=== PATIENT | male | born 1945 | race Hispanic/Latino ===

== ENCOUNTER 2018-08-21 08:18 | Day surgery (SDC) | payer MEDICARE ==
[2018-08-15 16:41] VITALS: BMI 28.7
[2018-08-21 08:58] VITALS: RESP 20
[2018-08-21] MEDS ORDERED: Lidocaine 1% Inj (20ml) ONE (11:19)
[2018-08-21] MEDS ORDERED: Propofol 10 mg/ml Inj (20 ML) ONE (11:20)
[2018-08-21] MEDS ORDERED: cefTRIAXone 1 GM in NS 100 ML BAG IVPB ONE (11:30)
[2018-08-21] MEDS ORDERED: cefTRIAXone (Rocephin) 1 gm Inj ONE (11:31)
[2018-08-21] MEDS ORDERED: Iohexol 240 (50 ml) ONE (11:32)
[2018-08-21] MEDS ORDERED: ePHEDrine 50 mg/ml Inj ONE (11:39)
[2018-08-21] MEDS ORDERED: HYDROmorphone 0.5 mg/0.5 ml ISec IVP PRN (12:27)
[2018-08-21] MEDS ORDERED: Lactated Ringer's 1,000 ML IV SCH (12:30)
[2018-08-21 13:37] VITALS: O2SAT 97
[2018-08-21 13:56] VITALS: TEMP 97.8
[2018-08-21 14:40] VITALS: BP 133/74; PULSE 80
--- NOTE | 2018-08-21 15:50 | OP ---
PROCEDURE DATE: 08/21/2018 PREOPERATIVE DIAGNOSES: Bladder outlet obstruction, benign prostatic hypertrophy. POSTOPERATIVE DIAGNOSES: Bladder outlet obstruction, benign prostatic hypertrophy. PROCEDURE: Cystoscopy, GreenLight laser vaporization of prostate. ATTENDING SURGEON: Rudi Isaac MD ANESTHESIA: General. SPECIMENS: There were none. DRAINS: A 20-[place] three-way Valenzuela catheter. COMPLICATIONS: There were none. OPERATIVE FINDINGS: After informed consent was obtained, the patient was taken to the operating room, placed on operating table. Anesthesia was administered. The patient was placed in dorsal lithotomy position and prepped and draped in the usual sterile fashion. The patient received IV antibiotics prior to start of the procedure. A 21-[place]an laser scope was placed in the patient's urethra and advanced proximally under direct vision, until the bladder was entered. A full survey inspection of bladder was performed which revealed no stones or bladder tumors. Bladder had grade II to III trabeculation with multiple cellules noted. Exam of the prostatic urethra revealed trilobar hypertrophy with occlusion. At this point, a GreenLight laser fiber was obtained. It was passed through the scope and laser vaporization was begun. The prostate was systematically vaporized from the bladder neck proximally, until the level of the verumontanum was reached. The median lobe was vaporized as well as both of the lateral lobes. Any bleeding points encountered during the vaporization were controlled using the laser on cauterization function. After all the obstructing tissue had been adequately removed, the irrigation was turned off, inspection was made for any bleeding points. Any active bleeding again was controlled using the laser. When hemostasis was complete, the procedure was completed. The bladder was inspected, there was no tissue in the bladder. The bladder was emptied and irrigated. The scope was then removed and a 20-[place] three-way Valenzuela catheter was passed and placed to continuous bladder irrigation. The patient tolerated the procedure well. He was returned to the supine position and taken to the recovery room awake, in stable condition. Rudi Isaac MD
== END 2018-08-21 13:10 | disposition home or self-care (01) ==
LOC: SDS 08:18
PROVIDERS: ATTEND Urology
DX: N40.1 Benign prostatic hyperplasia with lower urinary tract symptoms (principal); N13.8 Other obstructive and reflux uropathy; N32.0 Bladder-neck obstruction; I10 Essential (primary) hypertension; J43.9 Emphysema, unspecified; E11.9 Type 2 diabetes mellitus without complications; R06.00 Dyspnea, unspecified
CPT/HCPCS: 52648; J0696; J1170; J2405; J2704; J2765; J3010; J7120; Q9966

== ENCOUNTER 2018-09-20 14:23 | Inpatient (IN) | payer MEDICARE, BC ==
[2018-09-20 14:24] VITALS: BMI 28.7
[2018-09-20] MEDS ORDERED: Sodium Chloride 0.9% 1,000 ML IV STA (14:43)
--- NOTE | 2018-09-20 14:45 | ED PDOC ---
Arrival/HPI - General Time Seen by Provider: 09/20/18 14:26 Historian: Patient - History of Present Illness Narrative History of Present Illness (Text): 09/20/18 14:42 A 73 year old male, whose past medical history includes cystoscopy turp with green light laser (08/21/18), benign prostate hypertrophy, diabetes, colon cancer, hypertension, and hyperlipidemia, presents to the emergency department complaining of urinary retention with hematuria with bood clots since earlier today. Patient reports he went to an urgent care center after waking up having difficulty urinating and then urinating blood clots. Patient's blood pressure in clinic measured to be 74/61. Dr. Singletary, the [facility] ED doctor gave report to [facility] Dr. Alejandro Oliver about the details of the patient's case. Patient was given 3 liters of normal saline and blood pressure then measured to be 120/67. Dr. Isaac was then called who advised the patient to go to [facility] ED. Patient denies any current pain and notes having difficulty/inability to urinate. Per clinic reports, patient was given Rocephin 1 gram. Patient denies any fever, chills, back pain, abdominal pain, or any other complaints. PMD: Dr. Munoz Time/Duration: 4-6 hours (earlier today) Symptom Onset: Gradual Symptom Course: Unchanged Activities at Onset: Light Context: Home Past Medical History - Provider Review Nursing Documentation Reviewed: Yes - Tetanus Immunization Tetanus Immunization: Unknown - Cardiac Hx Pacemaker: No - Pulmonary Hx Emphysema: Yes - Neurological Hx Paralysis: No - Renal Hx Renal Disorder: No - Endocrine/Metabolic Hx Endocrine Disorders: No Hx Diabetes Mellitus Type 2: Yes (borderline) - Hematological/Oncological Hx Blood Transfusions: No - Musculoskeletal/Rheumatological Hx Musculoskeletal Disorders: No - Gastrointestinal Hx Gastrointestinal Disorders: No - Genitourinary/Gynecological Hx Prostate Problems: Yes (ENLARGED PROSTATE) - Psychiatric Hx Emotional Abuse: No Hx Physical Abuse: No Hx Substance Use: No - Surgical History Hx Appendectomy: Yes Hx Orthopedic Surgery: Yes (LEFT SHOULDER/ROTATORCUFF SX IN 1999) - Anesthesia Hx Anesthesia Reactions: No Hx Malignant Hyperthermia: No - Suicidal Assessment Feels Threatened In Home Enviroment: No Family/Social History - Physician Review Nursing Documentation Reviewed: Yes Family/Social History: No Known Family HX Smoking Status: Former Smoker (quit smoking 8 months ago) Hx Alcohol Use: No Hx Substance Use: No Hx Substance Use Treatment: No Allergies/Home Meds Allergies/Adverse Reactions: Allergies No Known Allergies Allergy (Verified 09/20/18 14:50) Home Medications: Home Meds Medication Instructions Recorded Confirmed Tamsulosin [Flomax] 0.4 mg PO DAILY 09/06/11 09/20/18 Atorvastatin [Lipitor] 20 mg PO DAILY 08/15/18 09/20/18 Glimepiride [amaRYL] 2 mg PO BID 08/15/18 09/20/18 Insulin Degludec [Tresiba] 25 unit SQ ACBHS 08/15/18 09/20/18 Losartan [Cozaar] 25 mg PO DAILY 08/15/18 09/20/18 Sitagliptin Phos/Metformin HCl 1 tab PO BID 08/15/18 09/20/18 [Janumet 50-1,000 mg Tablet] Review of Systems - Physician Review All systems were reviewed & negative as marked: Yes - Review of Systems Constitutional: absent: Fevers, Other (chills) Gastrointestinal: absent: Abdominal Pain Genitourinary Male: Hematuria (hematuria and blood clots), Other (urinary retention) Musculoskeletal: absent: Back Pain Physical Exam Vital Signs Reviewed: Yes Vital Signs Temp Pulse Resp BP Pulse Ox 09/20/18 14:33 97.8 F 90 16 106/68 97 Temperature: Afebrile Blood Pressure: Normal Pulse: Regular Respiratory Rate: Normal Appearance: Positive for: Well-Appearing, Non-Toxic Pain Distress: None Mental Status: Positive for: Alert and Oriented X 3 - Systems Exam Head: Present: Atraumatic, Normocephalic Pupils: Present: PERRL Extroacular Muscles: Present: EOMI Conjunctiva: Present: Normal Respiratory/Chest: Present: Clear to Auscultation, Good Air Exchange. No: Respiratory Distress, Accessory Muscle Use Cardiovascular: Present: Regular Rate and Rhythm, Normal S1, S2. No: Murmurs Abdomen: Present: Normal Bowel Sounds. No: Tenderness, Distention, Peritoneal Signs Genitourinary Male: Present: Normal External Genitalia, Other (moran cather in place; blood in urine; no tenderness to penis). No: Penile Discharge, Testicle Tenderness, Penile Swelling, Erythema Upper Extremity: Present: Normal Inspection Lower Extremity: Present: Normal Inspection Neurological: Present: GCS=15, CN II-XII Intact, Speech Normal Skin: Present: Warm, Dry, Normal Color. No: Rashes Psychiatric: Present: Alert, Oriented x 3, Normal Insight, Normal Concentration Medical Decision Making ED Course and Treatment: 09/20/18 14:44 Impression: 73 year old male presenting to the emergency room complaining urinary retention, hematuria with blood clots; placed on CBI at [facility] where they also noted large clot in the bladder with ultrasound Plan: -- VBG -- Labs -- CBC -- COAGs -- IV fluids -- Urinalysis -- Reassess and disposition Prior Visits: Notes and results from previous visits were reviewed. Progress Notes: 09/20/18 15:21 Case was discussed with Dr. Isaac who will place for a cystoscopy most likely on Saturday. Labs pending. Corrected Calcium 8.3. Potassium mildly elevated. Will repeat after hydration. 09/20/18 16:[address] Stone who agreed to admit to her service and Dr. Isaac on consult. Patient's blood pressure stable 98/68. Patient's urine in the moran bag appears bloody. Will place on remote tele due to continued bloody urine in history of hypotension on arrival at [facility]. - Scribe Statement The provider has reviewed the documentation as recorded by the Scribgretta Moreland All medical record entries made by the Scribe were at my direction and personally dictated by me. I have reviewed the chart and agree that the record accurately reflects my personal performance of the history, physical exam, medical decision making, and the department course for this patient. I have also personally directed, reviewed, and agree with the discharge instructions and disposition. Disposition/Present on Arrival - Present on Arrival Any Indicators Present on Arrival: Yes History of DVT/PE: No History of Uncontrolled Diabetes: No Urinary Catheter: No History Surgical Site Infection Following: Orthopedic Procedures - Disposition Have Diagnosis and Disposition been Completed?: Yes Diagnosis: Hematuria, Urinary retention Disposition: HOSPITALIZED Disposition Time: 16:10 Patient Plan: Admission Condition: FAIR
[2018-09-20 15:11] LABS: BASO # 0.03 K/mm3 (0.0-2.0); BASO % 0.3 % (0.0-3.0); EOS % 0.3 % (1.5-5.0); HEMOGLOBIN 10.4 g/dL (14.0-18.0); LYMPH # 1.4 (1.2-3.4); LYMPH % 12.2 % (22.0-35.0); MEAN CORPUSCULAR HEMOGLOBIN 28.4 pg (25.0-35.0); MEAN CORPUSCULAR HGB CONC 32.3 g/dl (31.0-37.0); MEAN PLATELET VOLUME 8.7 fl (7.0-11.0); MONO # 0.5 (0.1-0.6); MONO % 4.6 % (1.0-6.0); RBC 3.66 10^6/uL (3.5-6.1); WHITE BLOOD COUNT 11.6 10^3/uL (4.5-11.0)
[2018-09-20 15:16] LABS: INR 1.2; PARTIAL THROMBOPLASTIN TIME 27.6 Seconds (26.9-38.3); PROTHROMBIN TIME 13.3 SECONDS (9.4-12.5)
[2018-09-20 15:19] LABS: ALB/GLOB RATIO 1.3 (1.1-1.8); ALBUMIN 3.5 g/dL (3.0-4.8); ALT/SGPT 27 U/L (7-56); AST/SGOT 24 U/L (17-59); BLOOD UREA NITROGEN 15 mg/dL (7-21); CALCIUM 7.9 mg/dL (8.4-10.5); GFR NON-AFRICAN AMERICAN 60
[2018-09-20 16:10] LABS: VENOUS BLOOD GAS BASE EXCESS -5.4 mmol/L (0.0-2.0); VENOUS BLOOD GAS PO2 27 mm/Hg (30-55); VENOUS BLOOD PH 7.27 (7.32-7.43)
[2018-09-20 16:41] LABS: PH,URINE 7.5 (4.7-8.0); URINE BILIRUBIN NEGATIVE (NEGATIVE); URINE BLOOD LARGE (NEGATIVE); URINE GLUCOSE (UA) 100 mg/dL (NEGATIVE); URINE LEUKOCYTE ESTERASE MODERATE Leu/uL (NEGATIVE); URINE PROTEIN NEGATIVE mg/dL (<30 mg/dL); URINE UROBILINOGEN 0.2 E.U./dL (<1 E.U./dL)
[2018-09-20 16:43] LABS: URINE APPEARANCE TURBID (CLEAR); URINE COLOR RED (YELLOW)
[2018-09-20 16:46] LABS: URINE BACTERIA MANY /hpf; URINE RBC TNTC /hpf (0-2); URINE WBC TNTC /hpf (0-6)
[2018-09-20] MEDS ORDERED: Pneumococcal 23-Valent Vaccine IM ONE (17:26)
[2018-09-20] MEDS ORDERED: Non Formulary Medication (Sitagliptin Phos/Metformin Hcl [Janumet 50-1,000 Mg Tablet] 1 TA PO SCH (18:00)
[2018-09-20] MEDS: cefTRIAXone 1 gm 1 GM/100 ML BAG IVPB SCH (18:50)
[2018-09-20 20:02] LABS: VENOUS BLOOD GAS BASE EXCESS -2.2 mmol/L (0.0-2.0); VENOUS BLOOD GAS PO2 21 mm/Hg (30-55); VENOUS BLOOD PH 7.36 (7.32-7.43)
[2018-09-20] MEDS: Insulin Lispro (humaLOG) MEDIUM Coverage SC SCH (22:06)
[2018-09-20] MEDS ORDERED: Morphine 2 mg/ml ISec IVP STA (23:20)
--- NOTE | 2018-09-21 00:24 | CP.PCM.PCO ---
<Miguelina Chase - Last Filed: 09/21/18 01:19> Addendum Addendum: 09/21/18 01:19 OVERNIGHT RESIDENT NOTE MIGUELINA CHASE PGY1 Nursing staff paged about patient complaining of severe abdominal pain. I went to evaluate the patient. Urine was not draining into moran bag. I removed original CBI catheter and patient passed large clot once catheter was removed. I replaced with another 22F catheter. Bloody urine initially was draining, however stopped draining and abdominal pain and distention was noted. I removed catheter. Patient was able to pass urine once catheter was removed into urinal. Pain/distention also significantly improved. Patient was able to urinate without difficulty once catheter was removed. I will reassess throughout the night. <Cathi Waldrop - Last Filed: 09/21/18 19:05> Attending/Attestation - Attestation I have personally seen and examined this patient.: No I have fully participated in the care of the patient.: No I have reviewed all pertinent clinical information: No
--- NOTE | 2018-09-21 03:08 | HP ---
DATE OF EXAM: 09/20/2018 HISTORY OF PRESENT ILLNESS: The patient is 73 years old, came to emergency room with suprapubic discomfort and pain and having blood in the urine since morning. The patient had cystoscopy and GreenLight Laser procedure done by Dr. Isaac on 08/21/2018. He was okay up until last night, until he started to have this suprapubic discomfort this morning. He went to urgent care center. He was found to be hypotensive and blood pressure was 74/61. He was brought to [place] [facility] for further evaluation. The patient complains now feeling weak and dizzy. Denies any nausea. Did have some feeling of chills. PAST MEDICAL HISTORY: Significant for: 1. Noninsulin-dependent diabetes. 2. Cancer colon. 3. Hypertension. 4. Hyperlipidemia. 5. History of COPD. ALLERGIES: NOT ALLERGIC TO ANY MEDICATION. MEDICATION AT HOME: He is on Lipitor 100 mg daily, glimepiride 2 mg twice a day, Cozaar 25 daily, Janumet, Flomax, , Ambien. SOCIAL HISTORY: He used to be a very heavy smoker, quit 5 years ago. Denies alcohol, uses only socially. PHYSICAL EXAMINATION GENERAL: Awake and alert, able to communicate. VITAL SIGNS: Afebrile, pulse of 90, respirations of 16, blood pressure of 106/68. LUNGS: Bilateral fair airflow. No rhonchi or crackle. HEART: S1 and S2 audible. ABDOMEN: Soft, nontender, no rebound, no guarding. NEUROLOGIC: He is awake and alert, able to communicate. EXTREMITIES: Bilateral legs, no edema. He has a three-way catheter placed, draining pinkish urine. LABORATORY EXAM: WBC 11.6, hemoglobin 10.4, hematocrit 32, platelets of 151. PT of 13.3, INR of 1.20. Chemistries; sodium of 139, potassium of 5.1, chloride of 111, CO2 of 21, BUN of 15, creatinine of 1.2, blood sugar of 147. Urine shows positive nitrites and large blood. ASSESSMENT AND PLAN: 1. Status post GreenLight procedure, prostate vaporization. 2. Hematuria and urine retention. 3. Possibly urinary tract infection. 4. Hypertension. 5. Chronic obstructive pulmonary disease. 6. History of cancer colon. 7. Noninsulin-dependent diabetes. PLAN: The patient will be admitted. We will start him on IV antibiotics. Resume his medications, monitor blood sugar. Continue CBI. Dr. Jeter evaluated the patient. Follow CBC and electrolyte in a.m. Fior Stone MD
[2018-09-21 07:36] LABS: BASO # 0.03 K/mm3 (0.0-2.0); BASO % 0.3 % (0.0-3.0); EOS # 0.1 (0.0-0.7); EOS % 0.5 % (1.5-5.0); HEMOGLOBIN 9.8 g/dL (14.0-18.0); LYMPH # 1.3 (1.2-3.4); LYMPH % 12.5 % (22.0-35.0); MEAN CELL VOLUME 87.5 fl (80.0-105.0); MEAN CORPUSCULAR HEMOGLOBIN 28.5 pg (25.0-35.0); MEAN CORPUSCULAR HGB CONC 32.6 g/dl (31.0-37.0); MEAN PLATELET VOLUME 8.7 fl (7.0-11.0); MONO % 9.4 % (1.0-6.0); RBC 3.44 10^6/uL (3.5-6.1); RED CELL DISTRIBUTION WIDTH 15.1 % (11.5-14.5); WHITE BLOOD COUNT 10.5 10^3/uL (4.5-11.0)
[2018-09-21 07:52] LABS: ALB/GLOB RATIO 1.4 (1.1-1.8); ALBUMIN 3.9 g/dL (3.0-4.8); ALT/SGPT 25 U/L (7-56); AST/SGOT 25 U/L (17-59); BLOOD UREA NITROGEN 14 mg/dL (7-21); CALCIUM 8.3 mg/dL (8.4-10.5); GFR NON-AFRICAN AMERICAN > 60
[2018-09-21] MEDS: Insulin Lispro (humaLOG) MEDIUM Coverage SC SCH ×4 (08:19→23:26)
[2018-09-21] MEDS ORDERED: Morphine 2 mg/ml ISec IVP STA ×4 (09:45→16:15)
[2018-09-21] MEDS: cefTRIAXone 1 gm 1 GM/100 ML BAG IVPB SCH (09:55)
--- NOTE | 2018-09-21 14:43 | PN ---
DATE: 09/21/2018 SUBJECTIVE: The patient is 73-year-old, seen and examined, sitting in chair. Urinal in his hand. He stated he is peeing very little. He had Valenzuela placed but got clogged, so it was removed. Awaiting Dr. Isaac's input, who will be visiting the patient soon. PHYSICAL EXAMINATION: GENERAL: He is awake and alert, able to communicate. VITAL SIGNS: He is afebrile, pulse 118, respirations 20, blood pressure 101/62. LUNGS: Bilateral fair airflow. No rhonchi or crackle. HEART: S1 and S2 audible. ABDOMEN: Soft, nontender, no rebound, no guarding. NEUROLOGIC: The patient is awake and alert. Able to communicate. EXTREMITIES: Bilateral legs have no edema. LABORATORY DATA: WBC 10.5, hemoglobin 9.2, hematocrit 30, platelets 171. Chemistry: Sodium 141, potassium 4.3, chloride 110, CO2 of 21. BUN 14, creatinine 1, random blood sugar 143. His urine cultures are pending. ASSESSMENT AND PLAN: 1. Status post prostatectomy almost a month ago, developed hematuria and urine retention. 2. Uyy-pyrooqp-deaonjtcu diabetes. 3. History of carcinoma of colon, status post resection eight years ago. 4. Hypertension. 5. Hyperlipidemia. 6. History of chronic obstructive pulmonary disease. PLAN: We will monitor the patient's blood sugars. He is empirically on IV antibiotics. We will resume all his medications. Awaiting Dr. Isaac's input. Fior Stone MD
--- NOTE | 2018-09-22 08:45 | PN ---
DATE: 09/21/2018 The patient is well-known to me. He had a GreenLight laser vaporization of prostate approximately one month ago. He had been doing well until a few days prior to admission, he began having some gross hematuria. The patient had been seen in [place] [facility]. A Valenzuela catheter was placed. He had imaging done which apparently showed a large clot in his bladder. A Valenzuela catheter was inserted. He was draining blood-tinged urine and the patient eventually was transferred to [facility] for admission. The patient had the Valenzuela catheter in place. They were irrigating it; however, it was not working well. Attempts were made to change it. However, due to patient's discomfort, he was left without a Valenzuela catheter. The patient reports he has been voiding now although with some frequency, urine is grossly bloody. No fever or chills. Today, upon arriving at the bedside, the patient is sitting in a chair. He is comfortable. He reports he is voiding without difficulty, although the urine is bloody. On exam, his bladder feels mildly distended. I told the patient the plan would be to take him back to the operating room to do a cystoscopy with evacuation of the clots given the prior report. However, I felt that I would attempt to place a Valenzuela catheter and irrigate the clots out at bedside. I was able to pass a 20-[place]zech three-way Valenzuela catheter without any difficulty. About 150 mL of old bloody urine were evacuated. I was then able to irrigate the patient's bladder copiously with saline and remove approximately 150 mL of clots. The patient was left on CBI which is now running crystal clear. Plan is to observe him overnight. I will make him n.p.o. after midnight. If he continues to have clots and catheter issues, I will take him to the operating room tomorrow for a cystoscopy and evacuation of clots. If he remains clear overnight, we will hold the CBI and then possibly discharge him tomorrow with a Valenzuela catheter which can be taken out. Rudi Isaac MD
[2018-09-22] MEDS: Insulin Lispro (humaLOG) MEDIUM Coverage SC SCH ×4 (10:56→19:15)
--- NOTE | 2018-09-22 11:16 | CP.PCM.PCO ---
Physician Communication Note - Physician Communication Note Physician Communication Note: pt npo, for cysto with clot removal today per OR desk ,will follow
[2018-09-22] MEDS ORDERED: Propofol 10 mg/ml Inj (20 ML) ONE (11:44)
[2018-09-22] MEDS ORDERED: Etomidate 20 mg/10ml Inj IV ONE (11:45)
[2018-09-22] MEDS ORDERED: Lactated Ringer's 1,000 ML IV SCH (12:30)
--- NOTE | 2018-09-22 14:49 | PN ---
DATE: 09/22/2018 SUBJECTIVE: The patient is 73 years old, seen and examined. Still has urinary discomfort and difficulty voiding. He was seen by Dr. Isaac taken to OR for cystoscopy and clot removal. PHYSICAL EXAMINATION: VITAL SIGNS: He is afebrile. Pulse 89, respiration 20 and blood pressure 125/76. LUNGS: Bilateral fair airflow. No rhonchi or crackle. HEART: S1 and S2, audible. ABDOMEN: Soft, obese and nontender. No rebound. No guarding. NEUROLOGIC: The patient is awake, alert and able to communicate. LABORATORY DATA: Blood sugar is 125. His urine has Corynebacterium species. ASSESSMENT: 1. Status post GreenLight laser vaporization. 2. Plan for cystoscopy and cystoscopic removal of blood clots. 3. Non-insulin dependant diabetes. 4. History of cancer colon. 5. History of hypertension. 6. Chronic obstructive pulmonary disease. PLAN: The patient will be watched overnight. We will order for CBC and CMP in a.m. If the patient continues to improve disposition plan in a.m. Fior Stone MD
[2018-09-22] MEDS: cefTRIAXone 1 gm 1 GM/100 ML BAG IVPB SCH (15:20)
[2018-09-22] MEDS ORDERED: Morphine 2 mg/ml ISec IVP PRN (22:46)
--- NOTE | 2018-09-22 23:51 | OP ---
PROCEDURE DATE: 09/22/2018 PREOPERATIVE DIAGNOSIS: Clot retention. POSTOPERATIVE DIAGNOSIS: Clot retention. PROCEDURES: Cystoscopy, evacuation of clots, fulguration of prostatic bleeding. ATTENDING SURGEON: Rudi Isaac MD ANESTHESIA: General. SPECIMENS: Small amount of clot was sent to pathology. DRAINS: A 20-Tajik three-way Valenzuela catheter. COMPLICATIONS: There were none. OPERATIVE FINDINGS: After informed consent was obtained, the patient was taken to operating room, placed on the operating table, anesthesia was administered. The patient was placed in dorsal lithotomy position, prepped and draped in the usual sterile fashion. A 21-Tajik cystoscope was placed in the patient's urethra and advanced proximally under direct vision until the bladder was entered. A full survey inspection of bladder was then performed which revealed a small amount of free floating clot. There were no tumors. There was some mild catheter reaction. The clots were able to easily be irrigated out of the bladder using the 21 scope. After the clots were evacuated out of the bladder, inspection was made of the prostatic fossa. It was widely opened. There was a tiny area of venous oozing noted at the left bladder neck likely from Valenzuela catheters being inserted and removed. A Bugbee electrode was then obtained. It was passed and this area was cauterized. The irrigating fluid was shut off and further inspection was made. There was no active area of significant bleeding. At this point, the procedure was completed. A final inspection of the bladder was made. There was no remaining clots or debris. There was no active bleeding from the prostatic fossa. The cystoscope was removed and a 20-Tajik three-way Valenzuela catheter was passed and placed to continuous bladder irrigation. The patient tolerated the procedure well. He was returned to the supine position and taken to the recovery room awake and in stable condition. Rudi Isaac MD
[2018-09-23 03:12] VITALS: O2SAT 99
[2018-09-23 07:11] LABS: BASO # 0.03 K/mm3 (0.0-2.0); BASO % 0.4 % (0.0-3.0); EOS # 0.2 (0.0-0.7); EOS % 2.8 % (1.5-5.0); HEMOGLOBIN 9.7 g/dL (14.0-18.0); LYMPH # 1.3 (1.2-3.4); LYMPH % 17.6 % (22.0-35.0); MEAN CELL VOLUME 87.5 fl (80.0-105.0); MEAN CORPUSCULAR HEMOGLOBIN 27.6 pg (25.0-35.0); MEAN CORPUSCULAR HGB CONC 31.5 g/dl (31.0-37.0); MEAN PLATELET VOLUME 8.4 fl (7.0-11.0); MONO # 0.4 (0.1-0.6); RBC 3.52 10^6/uL (3.5-6.1); RED CELL DISTRIBUTION WIDTH 14.8 % (11.5-14.5); WHITE BLOOD COUNT 7.2 10^3/uL (4.5-11.0)
[2018-09-23 07:37] LABS: ALB/GLOB RATIO 1.3 (1.1-1.8); ALBUMIN 3.9 g/dL (3.0-4.8); ALT/SGPT 26 U/L (7-56); AST/SGOT 41 U/L (17-59); BLOOD UREA NITROGEN 11 mg/dL (7-21); CALCIUM 9.1 mg/dL (8.4-10.5); GFR NON-AFRICAN AMERICAN > 60
[2018-09-23] MEDS: Insulin Lispro (humaLOG) MEDIUM Coverage SC SCH ×2 (08:30→11:30)
[2018-09-23] MEDS: cefTRIAXone 1 gm 1 GM/100 ML BAG IVPB SCH (10:27)
[2018-09-23 17:08] VITALS: BP 127/73; RESP 20; TEMP 98.3
[2018-09-23 19:12] VITALS: PULSE 112
--- NOTE | 2018-09-24 04:29 | DS ---
HISTORY OF PRESENT ILLNESS: The patient is 73-year-old who came with difficulty urinating. He has blood in the urine. He was taken to OR, had cystoscopy and clot removal. Currently, he is draining viola colored urine. No nausea or vomiting. No diarrhea. No fever. No chills. Eating and tolerating. PHYSICAL EXAMINATION: VITAL SIGNS: He is afebrile. Pulse 81, respirations 20 and blood pressure 127/73. LUNGS: Bilateral fair air flow. No rhonchi or crackles. HEART: S1 and S2 audible. ABDOMEN: Soft and nontender. No rebound, no guarding. NEUROLOGIC: He is awake and alert, able to communicate. LABORATORY DATA: WBC of 11.2, hemoglobin 9.7, hematocrit 30.8 and platelet 143. Chemistry; sodium 138, potassium 4.4, chloride 102, CO2 of 29, BUN 11, creatinine 0.7 and blood sugar of 112. ASSESSMENT: 1. Status post urinary retention. 2. Hematuria. 3. Hypertension. 4. Noninsulin-dependent diabetes. 5. Hyperlipidemia. PLAN: We will continue patient's current medications. I will give him 3 more days of Cipro 500 twice a day. His urine grew corynebacterium species, that probably is contamination. He will follow with Dr. Isaac as outpatient and he will be sent home with leg bag. Fior Stone MD
== END 2018-09-23 19:14 | disposition home or self-care (01) | DRG 714 ==
LOC: ED 14:23 → ERH 15:30 → 3RSO 18:05 → 2RSO 19:27
PROVIDERS: ADMIT Internal Medicine; ATTEND Internal Medicine
PROC: 3E0234Z Introduction of Serum, Toxoid and Vaccine into Muscle, Percutaneous Approach (ICD-10-PCS; 2018-09-20)
PROC: 0V508ZZ Destruction of Prostate, Via Natural or Artificial Opening Endoscopic (ICD-10-PCS; 2018-09-22)
PROC: 0TCB8ZZ Extirpation of Matter from Bladder, Via Natural or Artificial Opening Endoscopic (ICD-10-PCS; principal; 2018-09-22 10:00)
DX: N40.1 Benign prostatic hyperplasia with lower urinary tract symptoms (principal); R31.0 Gross hematuria; R33.8 Other retention of urine; I10 Essential (primary) hypertension; E11.9 Type 2 diabetes mellitus without complications; Z87.891 Personal history of nicotine dependence; Z85.038 Personal history of other malignant neoplasm of large intestine; E78.5 Hyperlipidemia, unspecified; J43.9 Emphysema, unspecified; N42.1 Congestion and hemorrhage of prostate; Z79.4 Long term (current) use of insulin; Z90.49 Acquired absence of other specified parts of digestive tract; Z90.79 Acquired absence of other genital organ(s); Z23 Encounter for immunization